=== PATIENT | male | born 1995 | race Caucasian/White ===

== ENCOUNTER 2017-01-26 20:47 | Emergency (ER) | payer BC ==
[~2017-01-26] VITALS: Ht 170.2 cm; Wt 96.8 kg
[~2017-01-26 20:47] MED LIST: PERCOCET 5/31 TABLET PO
[2017-01-26] MEDS ORDERED: KEFLEX500 MG PO (22:41)
[2017-01-26 22:48] VITALS: BP 83/49
== END 2017-01-26 23:06 | disposition home or self-care (01) ==
LOC: EXP 20:47 → EME 20:47 → EXP 23:06
PROC: 0HQGXZZ Repair Left Hand Skin, External Approach (ICD-10-PCS; principal; 2017-01-26)
DX: S62.633B Displaced fracture of distal phalanx of left middle finger, initial encounter for open fracture (principal); V28.0XXA Motorcycle driver injured in noncollision transport accident in nontraffic accident, initial encounter; Y93.55 Activity, bike riding
CPT/HCPCS: 73140; 99281; 99284; J0690

== ENCOUNTER 2017-11-01 22:55 | Emergency (ER) | payer BC ==
[~2017-11-01] VITALS: Ht 170.2 cm; Wt 95.8 kg
[~2017-11-01 22:55] MED LIST changes: +KEFLEX500 MG PO
[2017-11-01 23:58] LABS: HEMATOCRIT 44.8 % (38.0-50.0); HEMOGLOBIN 15.3 G/DL (12.5-16.6); MCH 29.9 PG (29.0-34.0); MCHC 34.2 G/DL (30.0-36.0); MCV 87.5 FL (86-99); PLATELET COUNT 218 K/uL (156-360); RBC DIS.WIDTH-CV 13.2 % (11.8-14.6); RBC DIS.WIDTH-SD 42.8 % (39-53); RED BLOOD COUNT 5.12 M/uL (4.00-5.50); WHITE BLOOD COUNT 11.7 K/uL (4.1-10.2)
[2017-11-02 00:11] LABS: CHLORIDE 105 mEq/L (99-109); SODIUM 142 mEq/L (136-147)
[2017-11-02 00:12] LABS: GLUCOSE 138 mg/dL (70-99)
[2017-11-02 00:15] LABS: SERUM ETHYL ALCOHOL < 10 mg/dL
[2017-11-02 00:16] LABS: CREATININE 0.9 mg/dL (0.6-1.3); GFR ESTIMATE (CALCULATED) > 59 mL/min/ (58.99-99999)
[2017-11-02 00:17] LABS: UREA NITROGEN (BUN) 19 mg/dL (9-23)
[2017-11-02] MEDS ORDERED: NARCAN4 MG NS (01:54)
[2017-11-02 02:03] LABS: AMPHETAMINE NEGATIVE (500 ng/mL); BARBITURATES NEGATIVE (200 ng/mL); BENZODIAZEPINES NEGATIVE (150 ng/mL); BUPRENORPHINE NEGATIVE (10 ng/mL); COCAINE NEGATIVE (150 ng/mL); METHADONE NEGATIVE (200 ng/mL); METHAMPHETAMINE NEGATIVE (500 ng/mL); OPIATES (MORPHINE) NEGATIVE (100 ng/mL); OXYCODONE NEGATIVE (100 ng/mL); PHENCYCLIDINE NEGATIVE (25 ng/mL); PROPOXYPHENE NEGATIVE (300 ng/mL); THC CANNABINOIDS NEGATIVE (50 ng/mL); TRICYCLIC ANTIDEPRESSANTS NEGATIVE (300 ng/mL)
[2017-11-02 02:30] VITALS: BP 133/79
== END 2017-11-02 02:39 | disposition home or self-care (01) ==
LOC: EME → EDBD 22:55 → EME 22:55
PROVIDERS: Emergency Medicine
DX: F11.10 Opioid abuse, uncomplicated (principal); F17.200 Nicotine dependence, unspecified, uncomplicated
CPT/HCPCS: 71045; 80048; 85027; 93005; G0480; J2310; J2405